=== PATIENT | male | born 1975 | race Caucasian/White ===

== ENCOUNTER 2020-11-01 16:23 | Emergency (ER) | payer OTHER ==
[~2020-11-01] VITALS: Ht 190.5 cm; Wt 98.4 kg
--- NOTE | 2020-11-01 20:11 | EKG ---
[facility] [address] [facility] [place], [place] [address] Signed Atrial fibrillation Abnormal ECG No previous ECGs available Confirmed by SHORTY CRUZ DO ([id number] on 11/01/2020 8:11:47 PM Electronically Signed By: SHORTY CRUZ DO 11/01/202010 PATIENT NAME: MARKHAMYOBANI Electrocardiogram DATE OF : 73 PHYSICIAN: SHORTY CRUZ DO REPORT #: [id number] REPORT IS CONFIDENTIAL AND NOT TO BE RELEASED WITHOUT AUTHORIZATION
--- NOTE | 2020-11-04 18:41 | EKG ---
[facility] [address] [facility] [place] [address] Signed Sinus bradycardia with sinus arrhythmia Septal infarct , age undetermined Abnormal ECG When compared with ECG of 01-NOV-2020 17:04, (Unconfirmed) Sinus rhythm has replaced Atrial fibrillation Septal infarct is now present Confirmed by DIAOMND ABDUL MD ([id number] on 11/04/2020 6:41:03 PM Electronically Signed By: DIAMOND BADUL MD 11/04/20 1841 PATIENT NAME: YOBANI MARKHAM Electrocardiogram DATE OF : 73 PHYSICIAN: DIAMOND ABDUL MD REPORT #: [id number] REPORT IS CONFIDENTIAL AND NOT TO BE RELEASED WITHOUT AUTHORIZATION
== END 2020-11-01 19:53 | disposition home or self-care (01) ==
LOC: ED 16:23
DX: I48.91 Unspecified atrial fibrillation (principal)
CPT/HCPCS: 80048; 85025; 93005; 93010; 99285-25; J2704; J7030